=== PATIENT | male | born 1945 | race Caucasian/White ===

== ENCOUNTER 2017-08-28 10:40 | Emergency (ER) | payer OTHER ==
[~2017-08-28] VITALS: Ht 162.6 cm; Wt 65.0 kg
[~2017-08-28 10:40] MED LIST: CETI5SOL PO; DYAZ; ENAL20TA PO; FURO1TAB93 PO; MAGN250T3; OMEP20TA PO; VITA20003
[2017-08-28 10:43] VITALS: BP 178/74; PULSE 56; RESP 16; TEMP 99.2; O2SAT 100
[2017-08-28] MEDS ORDERED: TRAM50TA PO (11:21)
[2017-08-28] MEDS ORDERED: CLON0.5T PO (11:21)
[2017-08-28] MEDS ORDERED: ENAL20TA PO (11:21)
[2017-08-28] MEDS ORDERED: MAGN250T11 PO (11:21)
[2017-08-28] MEDS ORDERED: ATOR20TA15 PO (11:21)
[2017-08-28] MEDS ORDERED: VITA2000 PO (11:21)
[2017-08-28] MEDS ORDERED: BACL10TA PO (11:21)
[2017-08-28] MEDS ORDERED: SERT25TA83 PO (11:21)
[2017-08-28] MEDS ORDERED: FURO40TA PO (11:21)
--- NOTE | 2017-08-28 11:46 | PD ---
HPI Chief Complaint: Pain: Acute or Chronic Time Seen by Provider: 11:00 Travel History International Travel<30 days: No Contact w/Intl Traveler<30days: No Traveled to known affect area: No History of Present Illness HPI Mr. Wisdom is a 72 yo male with a PMH of HTN, cervical spine fusion , and chronic back pain presenting to the ED with right shoulder and hip pain. He states that this started a few days ago. He started feeling pain originating from his neck down his shoulder to his fingertips along with a pins and needles sensation. He states he has numbness in his fingertips of both hands. He states that his pain got worse yesterday and caused him to not be able to sleep. He states that the pain also goes down his thigh and into his right hip. He is also feeling especially weak in his right leg for the past few days and in his right arm for the past month. Of note, he does have chronic back pain for which he takes Tramadol twice a day. His last dose was last night. He has also had a cervical spine fusion in 2005. No recent falls. He states that he last fell on his right shoulder a few years ago while he was in a store. PFSH Past Medical History Arthritis: Yes Blood Disorders: No Cancer: No Cardiovascular Problems: No High Cholesterol: Yes Diabetes: No Diminished Hearing: No Endocrine: No Glaucoma: No Genitourinary: No Hepatitis: No Hiatal Hernia: No Hypertension: Yes Immune Disorder: No Musculoskeletal: No Neurologic: No Psychiatric: No Reproductive: No Respiratory: No Thyroid Disease: No ?: Not Past Surgical History Abdominal Surgery: Yes (APPENDECTOMY) Appendectomy: Yes Cardiac Surgery: No Ear Surgery: No Endocrine Surgery: No Eye Surgery: No Genitourinary Surgery: Yes ([facility] Dec) Gynecologic Surgery: No Neurologic Surgery: Yes (CERVICAL FUSION WITH PLATE ) Oral Surgery: No Pacemaker: No Thoracic Surgery: No Other Surgery: Yes Social History Alcohol Use: No Tobacco Use: No Substance Use: No Allergies-Medications (Allergen,Severity, Reaction): Coded Allergies: gemfibrozil (Unverified Allergy, Unknown, Myalgia, 07/09/17) Reported Meds & Prescriptions Reported Meds & Active Scripts Active Reported Clonazepam 0.5 Mg Tab 0.5 Mg PO HS Furosemide 40 Mg Tab 40 Mg PO DAILY Tramadol (Tramadol HCl) 50 Mg Tab 50 Mg PO Q12HR PRN Baclofen 10 Mg Tab 10 Mg PO TID Vitamin D3 (Cholecalciferol) 2,000 Unit Cap 2,000 Units PO DAILY Atorvastatin (Atorvastatin Calcium) 20 Mg Tab 20 Mg PO HS Sertraline (Sertraline HCl) 25 Mg Tab 25 Mg PO DAILY Magnesium Oxide 250 Mg Tab 250 Mg PO DAILY Review of Systems General / Constitutional: No: Fever, Chills HENT: No: Headaches Musculoskeletal: Positive: Myalgias, Limited ROM, Weakness, Pain Neurologic: Positive: Paresthesia, No: Dizziness Physical Exam Narrative GENERAL: Well-nourished, well-developed patient. SKIN: Warm and dry. HEAD: Normocephalic. EYES: No scleral icterus. No injection or drainage. NECK: Supple, trachea midline. CARDIOVASCULAR: Regular rate and rhythm without murmurs, gallops, or rubs. RESPIRATORY: Breath sounds equal bilaterally. No accessory muscle use. GASTROINTESTINAL: Abdomen soft, non-tender, nondistended. BACK: [id number] nodule on mid- thoracic spine. EXTREMITIES: No cyanosis, or edema. Decreased ROM of right shoulder. Positive straight leg raise in right leg causing pain in lower back. NEUROLOGICAL: Awake, alert. 5/5 strength in left UE and LE, 3/5 in right UE and LE, decreased sensation in all fingertips of bilateral hands Data Data Last Documented VS Vital Signs Date Time Temp Pulse Resp B/P (MAP) Pulse Ox O2 Delivery O2 Flow Rate FiO2 08/28/17 10:43 99.2 56 16 178/74 (108) 100 Room Air MDM Medical Decision Making Medical Screen Exam Complete: Yes Emergency Medical Condition: Yes Differential Diagnosis cervical spine compression vs rotator cuff vs nerve injury Narrative Course 72yo M with a PMH of HTN, depression, chronic back pain presenting to the ED with right shoulder and hip pain. Physical exam showed right upper and lower extremity weakness. Most likely has a cervical spine origin. Toradol IM for pain refer to PCP for follow-up and imaging Diagnosis Primary Impression: Right shoulder pain Disposition: 01 DISCHARGE HOME Monica Redding MD R1 Aug 28, 2017 11:46
[2017-08-28] MEDS ORDERED: KETOROLAC TROMETHAMINE 60 MG/2 ML (IM) VIAL IM ONE (12:00)
--- NOTE | 2017-08-28 12:25 | PD ---
Data Data Last Documented VS Vital Signs Date Time Temp Pulse Resp B/P (MAP) Pulse Ox O2 Delivery O2 Flow Rate FiO2 08/28/17 10:43 99.2 56 16 178/74 (108) 100 Room Air Orders Orders Ketorolac Inj (Toradol Inj) (08/28/17 12:00) MDM Supervised Visit with JACK: Yes Narrative Course The history, exam, and medical decision-making in the associated resident provider note were completed with my assistance. I reviewed and agree with the findings presented. I attest that I had a [id number] encounter with the patient on the same day, and personally performed and documented my assessment and findings in the medical record. *My assessment and Findings: 72-year-old man, history of neck and back problems, presents with several weeks of worsening right sided arm and leg pain, bilateral upper extremity paresthesias, and some neuropathy symptoms in both feet. On exam he is a little bit of weakness in right tissue packer strength otherwise is grossly normal. He can walk unassisted. There is no obvious instability. There is no abnormal reflexes. There is no objective sensory deficits. Patient has a primary care physician. I think he needs urgent outpatient MRI. I discussed this with the patient I recommended he follow up with his primary doctor in the next week. Diagnosis Primary Impression: Right shoulder pain Disposition: 01 DISCHARGE HOME Avel Padilla MD Aug 28, 2017 12:25
== END 2017-08-28 12:37 | disposition home or self-care (01) ==
LOC: NEPD 10:40
DX: M25.511 Pain in right shoulder (principal); M19.90 Unspecified osteoarthritis, unspecified site; G89.29 Other chronic pain; M54.5 Low back pain; I10 Essential (primary) hypertension; Z98.1 Arthrodesis status
CPT/HCPCS: 96372; 99284; J1885